=== PATIENT | female | born 1925 | race Caucasian/White ===

== ENCOUNTER → 2017-01-30 | Outpatient (CLI) | payer MEDICARE, BC ==
--- NOTE | 2017-01-30 19:05 | XR ---
EXAMINATION TYPE: XR chest 2V DATE OF EXAM: 01/30/2017 COMPARISON: 03/29/2016 HISTORY: Dyspnea TECHNIQUE: Frontal and lateral views of the chest are obtained. FINDINGS: Prominent hiatal hernia redemonstrated. Also, linear band of left midlung zone added opacit y in the horizontal plane, consistent with discoid atelectasis versus scar. This was seen on the prio r study. There is no focal air space opacity, pleural effusion, or pneumothorax seen. The cardiac silhouette size is within normal limits. The osseous structures are intact. IMPRESSION: No acute cardiopulmonary process.
== END | disposition home or self-care (01) ==
LOC: RADXRMAIN 11:50
PROVIDERS: ATTEND Internal Medicine Cardiovascular Disease
DX: R06.02 Shortness of breath (principal)
CPT/HCPCS: 71020

== ENCOUNTER → 2017-01-30 | Outpatient (CLI) | payer MEDICARE, BC ==
[2017-01-30 12:23] LABS: Anion Gap 9 mmol/L; Blood Urea Nitrogen 23 mg/dL (7-17); Carbon Dioxide 28 mmol/L (22-30); Chloride 98 mmol/L (98-107); Non-African American GFR(MDRD) 53 (>60 ml/min/1.73 sqM); Potassium 4.2 mmol/L (3.5-5.1); Sodium 135 mmol/L (137-145)
== END | disposition home or self-care (01) ==
LOC: LABWHC1 11:42
PROVIDERS: ATTEND Internal Medicine Cardiovascular Disease
DX: I34.0 Nonrheumatic mitral (valve) insufficiency (principal); N18.3 Chronic kidney disease, stage 3 (moderate); R06.02 Shortness of breath; Z79.899 Other long term (current) drug therapy
CPT/HCPCS: 36415; 71020; 80051; 82565; 84520

== ENCOUNTER 2017-03-20 10:41 | Day surgery (SDC) | payer MEDICARE, BC ==
[2017-03-14 13:22] VITALS: BMI 25.7
[2017-03-20 11:33] VITALS: TEMP 97.9
[2017-03-20] MEDS: LACTATED RINGERS 1,000 ML IV SCH ×2 (11:42→12:07)
[2017-03-20 11:43] LABS: Glucose,Whole Blood 81 mg/dL (75-99)
[2017-03-20] MEDS ORDERED: PROPOFOL 10 MG/ML 20 ML VIAL IV ONE (12:09)
--- NOTE | 2017-03-20 12:15 | P.GSHP ---
History of Present Illness H&P Date: 03/20/17 Chief Complaint: GI bleed Is a 89-year-old female who's had issues rectal bleeding. Patient rents today for colonoscopy. Past Medical History Past Medical History: Cancer, COPD, CVA/TIA, Deep Vein Thrombosis (DVT), Hypertension, Osteoarthritis (OA), Pneumonia, Pulmonary Embolus (PE), Thyroid Disorder Additional Past Medical History / Comment(s): bleeding rectom 6 weeks,DVT x 2 in legs and L arm, bilateral PE's, Panulcerative colitis, basal cell skin ca removals, nonhodgkins lymphoma with L thigh lesion removed-had radiation, hypothyroidism, folic acid anemia, UTI, bilateral varicosities, minor rectal prolapse, prolapsed mitral and bicuspid valves, small stable spot on liver, several pneumonias, scoliosis, back pain,ovarian cysts,steroids w/in 3 mos History of Any Multi-Drug Resistant Organisms: None Reported Past Surgical History: Adenoidectomy, Appendectomy, Back Surgery, Bladder Surgery, Breast Surgery, Heart Catheterization, Tonsillectomy Additional Past Surgical History / Comment(s): laminectomy L3-L4, bilateral cataracts removed, L thigh lesion excised, cycstocele, cardiac cath yrs ago which was normal, colonoscopies-normal, mela carpal tunnel release, skin cancer removals, 2 cysts removed from breast, uterine prolapse surgery, bronchoscopy with bx Past Anesthesia/Blood Transfusion Reactions: No Reported Reaction, Previous Problems w/ Anesthesia Additional Past Anesthesia/Blood Transfusion Reaction / Comment(s): states" aspirated with prior colonoscopy and had double pneumonia" Smoking Status: Never smoker - Past Family History Father Family Medical History: Coronary Artery Disease (CAD), Myocardial Infarction ([place] ) Additional Family Medical History / Comment(s): Father of a NE at the age of 66 yrs. Mother Family Medical History: Liver Disease Additional Family Medical History / Comment(s): Mother at the age of 39yrs of cirrhosis. Brother(s) Additional Family Medical History / Comment(s): heart problems Medications and Allergies Home Medications Medication Instructions Recorded Confirmed Type Carvedilol [Coreg] 12.5 mg PO BID 10/19/14 03/20/17 History Folic Acid 2 mg PO DAILY 10/19/14 03/20/17 History Levothyroxine Sodium [Synthroid] 75 mcg PO QAM 10/19/14 03/20/17 History sulfaSALAzine [Azulfidine] 500 mg PO DAILY 10/19/14 03/20/17 History prednisoLONE ACETATE [Pred Forte 1 drop LEFT EYE Q48H 03/29/16 03/20/17 History 1%] Cholecalciferol [Vitamin D3] 400 unit PO DAILY 03/14/17 03/20/17 History Losartan Potassium [Cozaar] 50 mg PO BID 03/14/17 03/20/17 History Vitamin E 400 unit PO DAILY 03/14/17 03/20/17 History Allergies Allergy/AdvReac Type Severity Reaction Status Date / Time latex Allergy blisters Verified 03/20/17 11:12 skin morphine AdvReac Nausea & Verified 03/20/17 11:12 Vomiting Surgical - Exam Vital Signs Temp Pulse Resp BP Pulse Ox 97.9 F 69 18 167/93 98 03/20/17 11:31 03/20/17 11:31 03/20/17 11:31 03/20/17 11:31 03/20/17 11:31 - General well developed, well nourished, no distress - Eyes PERRL - ENT normal pinna - Neck no masses - Respiratory normal expansion - Cardiovascular Rhythm: regular - Abdomen Abdomen: soft, non tender Assessment and Plan Plan: GI bleed. We'll perform colonoscopy.
--- NOTE | 2017-03-20 12:36 | P.OP ---
Date of Procedure: 03/20/17 Preoperative Diagnosis: GI bleed Postoperative Diagnosis: Rectal polyp Diverticulosis Procedure(s) Performed: Colonoscopy Implants: Anesthesia: MAC Surgeon: Tejas Joseph Pathology: other (Rectal polyp) Condition: stable Disposition: PACU Indications for Procedure: Operative Findings: Description of Procedure: The rectal polyp was seen approximate 5 cm from anal verge. A biopsies performed with a forcep. The polyp was too large to remove in its entirety. This point scope was advanced into the colon. The colon was very tortuous. The scope could not be placed into the ileocecal valve due to tortuosity valve. This point scope was withdrawn. The distal right colon and hepatic flexure appeared normal. The transverse colon appeared normal. In the descending colon there is mild diverticular changes. In the sigmoid: There is extensive diverticular changes. Scope was then brought back the rectum and then the rectal polyp was visualized once again approximately 5 cm from anal verge. Scope was then withdrawn from patient.
[2017-03-20 12:40] VITALS: RESP 16
[2017-03-20 13:11] VITALS: BP 138/76; PULSE 79
== END 2017-03-20 13:47 | disposition home or self-care (01) ==
LOC: ORWHC2ENDO 10:41
PROVIDERS: ATTEND Surgery
DX: D12.8 Benign neoplasm of rectum (principal); K57.30 Diverticulosis of large intestine without perforation or abscess without bleeding; Q43.8 Other specified congenital malformations of intestine; I10 Essential (primary) hypertension; Z86.718 Personal history of other venous thrombosis and embolism; Z86.711 Personal history of pulmonary embolism; E03.9 Hypothyroidism, unspecified; Z86.73 Personal history of transient ischemic attack (TIA), and cerebral infarction without residual deficits; Z79.52 Long term (current) use of systemic steroids; Z79.899 Other long term (current) drug therapy; Z88.5 Allergy status to narcotic agent; Z91.040 Latex allergy status
CPT/HCPCS: 88305; 45380; J2704

== ENCOUNTER 2017-04-26 09:46 | Day surgery (SDC) | payer MEDICARE, BC ==
[2017-04-18 14:27] VITALS: BMI 26.1
[~2017-04-26 09:46] MED LIST: DEXAMETHASONE SOD PHOSPHATE 10 MG/ML 1 ML VIAL IV ONE; HEPARIN SODIUM,PORCINE 5,000 UNIT/ML 1 ML VIAL SQ ONE; HYDROmorphone 1 MG/ML 1 ML SYRINGE IVP PRN; LACTATED RINGERS 1,000 ML IV SCH; LIDOCAINE 1% 20 ML VIAL (10MG/ML) FOR IV START INTRADERMA PRN; MIDAZOLAM 2 MG/2 ML VIAL IV PRN; ONDANSETRON 4 MG/2 ML VIAL IVP ONE; Pre Op ABX Message 1 EACH MISC MISCELLANE ONE; SCOPOLAMINE 1.5MG/72HR PATCH TRANSDERM ONE
--- NOTE | 2017-04-26 10:17 | P.GSHP ---
History of Present Illness H&P Date: 04/26/17 Chief Complaint: Rectal polyp This 89-year-old female who presents today for transanal excision of a rectal polyp. Patient underwent recent colonoscopy. She had a large rectal polyp which was unable to be removed via colonoscope. Past Medical History Past Medical History: Cancer, COPD, CVA/TIA, Deep Vein Thrombosis (DVT), GI Bleed, Hypertension, Osteoarthritis (OA), Pulmonary Embolus (PE), Thyroid Disorder Additional Past Medical History / Comment(s): rectal bld for 6 weeks, HX of DVT' s & PE'S; Panulcerative colitis, basal cell skin ca , nonhodgkins lymphoma with L thigh lesion, hypothyroidism, folic acid anemia, bilateral varicosities, minor rectal prolapse, prolapsed mitral and bicuspid valves, small stable spot on liver, Hx of pneumonias, scoliosis, back pain,ovarian cysts, History of Any Multi-Drug Resistant Organisms: None Reported Past Surgical History: Adenoidectomy, Appendectomy, Back Surgery, Bladder Surgery, Breast Surgery, Heart Catheterization, Tonsillectomy Additional Past Surgical History / Comment(s): laminectomy L3-L4, bilateral cataracts ; L thigh lesion excised, cycstocele, cardiac cath , colonoscopiesl, mela carpal tunnel release, skin cancer removals, radiation; 2 cysts removed from breast, uterine prolapse surgery, bronchoscopy Past Anesthesia/Blood Transfusion Reactions: Previous Problems w/ Anesthesia Additional Past Anesthesia/Blood Transfusion Reaction / Comment(s): states" aspirated with prior colonoscopy and had double pneumonia" Smoking Status: Never smoker - Past Family History Father Family Medical History: Coronary Artery Disease (CAD), Myocardial Infarction ([place] ) Additional Family Medical History / Comment(s): Father of a [place] at the age of 66 yrs. Mother Family Medical History: Liver Disease Additional Family Medical History / Comment(s): Mother at the age of 39yrs of cirrhosis. Brother(s) Additional Family Medical History / Comment(s): heart problems Medications and Allergies Home Medications Medication Instructions Recorded Confirmed Type Carvedilol [Coreg] 12.5 mg PO BID 10/19/14 04/26/17 History Folic Acid 2 mg PO DAILY 10/19/14 04/26/17 History Levothyroxine Sodium [Synthroid] 75 mcg PO QAM 10/19/14 04/26/17 History sulfaSALAzine [Azulfidine] 500 mg PO DAILY 10/19/14 04/26/17 History prednisoLONE ACETATE [Pred Forte 1 drop LEFT EYE Q48H 03/29/16 04/26/17 History 1%] Cholecalciferol [Vitamin D3] 400 unit PO DAILY 03/14/17 04/26/17 History Losartan Potassium [Cozaar] 50 mg PO DAILY 03/14/17 04/26/17 History Vitamin E 400 unit PO DAILY 03/14/17 04/26/17 History Allergies Allergy/AdvReac Type Severity Reaction Status Date / Time latex Allergy blisters Verified 04/26/17 10:02 skin morphine AdvReac Nausea & Verified 04/26/17 10:02 Vomiting Surgical - Exam - General well developed, no distress - Eyes PERRL - ENT normal pinna - Neck no masses - Respiratory normal expansion - Cardiovascular Rhythm: regular - Abdomen Abdomen: soft, non tender Assessment and Plan Plan: Rectal polyp. We'll perform transanal excision.
[2017-04-26 10:19] VITALS: RESP 18; TEMP 97.7
[2017-04-26] MEDS ORDERED: NA PHOS,M-B/NA PHOS,DI-BA 133 ML ENEMA RECTAL ONE (10:35)
[2017-04-26] MEDS ORDERED: MIDAZOLAM 2 MG/2 ML VIAL ONE (11:08)
[2017-04-26] MEDS ORDERED: fentaNYL (PF) 50 MCG/ML 2 ML AMP ONE (11:08)
[2017-04-26] MEDS ORDERED: PROPOFOL 10 MG/ML 20 ML VIAL IV ONE (11:08)
[2017-04-26] MEDS ORDERED: BUPIVACAINE-EPI 0.5%-1:200,000 10 ML VIAL SQ ONE (11:27)
--- NOTE | 2017-04-26 11:37 | P.OP ---
Date of Procedure: 04/26/17 Preoperative Diagnosis: Rectal polyp Postoperative Diagnosis: Rectal polyp Procedure(s) Performed: Transanal excision of rectal polyp Implants: Anesthesia: MAC Surgeon: Tejas Joseph Estimated Blood Loss (ml): 2 Pathology: other (Rectal polyp) Condition: stable Disposition: PACU Indications for Procedure: Operative Findings: Description of Procedure: The patient was placed on the operating table in the prone jackknife position. She received IV sedation. Digital rectal exam was performed. There was a polyp palpated on the left side of the rectum. Using the bivalved anal retractor the polyp was exposed. The polyp was grasped with a pair of Allis clamps. Using the Harmonic scissors the polypectomy was performed. There is no bleeding seen at the polypectomy site. The area was injected with 1% local Xylocaine with epinephrine. A piece of thrombin Gelfoam was placed in the anus. Patient top procedure well and was sent to recovery in stable condition.
[2017-04-26 12:13] VITALS: BP 151/76; PULSE 64
== END 2017-04-26 13:06 | disposition home or self-care (01) ==
LOC: OR 09:46
PROVIDERS: ATTEND Surgery
DX: D12.8 Benign neoplasm of rectum (principal); K64.9 Unspecified hemorrhoids; I10 Essential (primary) hypertension; J44.9 Chronic obstructive pulmonary disease, unspecified; M19.90 Unspecified osteoarthritis, unspecified site; E07.9 Disorder of thyroid, unspecified; I34.1 Nonrheumatic mitral (valve) prolapse; Z86.73 Personal history of transient ischemic attack (TIA), and cerebral infarction without residual deficits; Z86.718 Personal history of other venous thrombosis and embolism; Z86.711 Personal history of pulmonary embolism; Z87.19 Personal history of other diseases of the digestive system; Z85.828 Personal history of other malignant neoplasm of skin; Z88.5 Allergy status to narcotic agent; Z91.040 Latex allergy status
CPT/HCPCS: 45171; 88305; J2250; J1644; J1100; J2405; J3010; J2704

== ENCOUNTER → 2017-05-22 | Outpatient (CLI) | payer MEDICARE, BC ==
[2017-05-22 10:43] LABS: ALT 24 U/L (9-52); Anion Gap 9 mmol/L; Blood Urea Nitrogen 21 mg/dL (7-17); Carbon Dioxide 26 mmol/L (22-30); Chloride 99 mmol/L (98-107); Cholesterol 204 mg/dL (<200); HDL Cholesterol 67 mg/dL (40-60); Non-African American GFR(MDRD) 52 (>60 ml/min/1.73 sqM); Potassium 4.7 mmol/L (3.5-5.1); Sodium 134 mmol/L (137-145)
[2017-05-22 10:46] LABS: Basophils # (A) 0.1 k/uL (0-0.2); Basophils % (A) 1 %; CH 29.9; CHCM 31.8; Eosinophils # (A) 0.2 k/uL (0-0.7); Eosinophils % (A) 2 %; HCT 51.2 % (34.0-46.0); HDW 2.04; HGB 16.2 gm/dL (11.4-16.0); Luc # (Auto) 0.19; Luc % (Auto) 3; Lymphocytes # (A) 1.6 k/uL (1.0-4.8); Lymphocytes % (A) 24 %; MCH 29.9 pg (25.0-35.0); MCHC 31.6 g/dL (31.0-37.0); MCV 94.6 fL (80.0-100.0); Mean Platelet Volume 9.1; Monocytes # (A) 0.8 k/uL (0-1.0); Monocytes % (A) 11 %; Neutrophils # (A) 4.1 k/uL (1.3-7.7); Neutrophils % (A) 59 %; RBC 5.41 m/uL (3.80-5.40); RDW 12.9 % (11.5-15.5); WBC 6.9 k/uL (3.8-10.6); WBC (Perox) 7.02
== END | disposition home or self-care (01) ==
LOC: LABWHC1 09:27
PROVIDERS: ATTEND Internal Medicine Cardiovascular Disease
DX: E03.9 Hypothyroidism, unspecified (principal); I34.0 Nonrheumatic mitral (valve) insufficiency; N18.3 Chronic kidney disease, stage 3 (moderate); E78.5 Hyperlipidemia, unspecified; I27.0 Primary pulmonary hypertension; R06.02 Shortness of breath; Z79.899 Other long term (current) drug therapy
CPT/HCPCS: 36415; 80051; 80061; 82565; 83880; 84443; 84460; 84520; 85025

== ENCOUNTER → 2017-05-22 | Outpatient (CLI) | payer MEDICARE, BC ==
--- NOTE | 2017-05-23 09:15 | MM ---
Reason for exam: screening (asymptomatic). Last mammogram was performed 2 years and 4 months ago. History: Patient is postmenopausal, has history of other cancer at age 86, and is nulliparous. Family history of breast cancer in aunt. 2 cyst aspirations of the right breast. Excisional biopsy of the right breast. Physical Findings: A clinical breast exam by your physician is recommended on an annual basis and results should be correlated with mammographic findings. MG 3D Screening Mammo W/Cad Bilateral CC, MLO, and XCCL view(s) were taken. Prior study comparison: January 19, 2015, bilateral MG diagnostic mammo w CAD SERGE. May 05, 2010, bilateral digital screening mammogram. The breast tissue is heterogeneously dense. This may lower the sensitivity of mammography. Finding: There is a stable grouped/clustered calcifications in the outer quadrant, middle, central position of the left breast. No suspicious abnormality. No significant changes in finding since January 19, 2015 and May 05, 2010. ASSESSMENT: Benign, BI-RAD 2 RECOMMENDATION: Routine screening mammogram of both breasts in 1 year.
== END | disposition home or self-care (01) ==
LOC: RADMAMWWP 10:16
PROVIDERS: ATTEND Surgery
DX: Z12.31 Encounter for screening mammogram for malignant neoplasm of breast (principal)
CPT/HCPCS: 77063; G0202